=== PATIENT | female | born 1995 | race Caucasian/White ===

== ENCOUNTER 2020-03-23 18:13 | Emergency (ER) | payer MEDICAID ==
[~2020-03-23] VITALS: Ht 172.7 cm; Wt 116.1 kg
[2020-03-23 18:28] VITALS: Ht 172.7 cm; Wt 116.1 kg
[2020-03-23 19:52] LABS: BASOPHIL % 0.6 % (0-2); PLATELET COUNT 257 x10^3mcL (130-400); RED CELL DISTRIBUTION WIDTH 13.4 % (11.5-14.5)
[2020-03-23 19:59] LABS: CALCIUM 8.4 mg/dL (8.5-10.1); CARBON DIOXIDE 27.2 mmol/L (21-32); CHLORIDE SERUM 105 mmol/L (98-107); GFR1 > 60 mL/min; GLUCOSE SERUM 92 mg/dL (74-106); POTASSIUM SERUM 3.8 mmol/L (3.5-5.1); SODIUM SERUM 141 mmol/L (136-145)
[2020-03-23 20:03] LABS: ALBUMIN 3.5 g/dL (3.4-5.0); ALKALINE PHOSPHATASE 71 U/L (46-116); ALT/SGPT 25 U/L (14-59); AST/SGOT 14 U/L (15-37); BILIRUBIN TOTAL 0.2 mg/dL (0.20-1.00); LIPASE 78 IU/L (73-393); TOTAL PROTEIN, SERUM 7.2 g/dL (6.4-8.2)
[2020-03-23 20:28] LABS: microscopic required? NO
[2020-03-23 20:35] LABS: UA SPECIFIC GRAVITY >=1.030 (1.005-1.035); urine erythrocyte NEGATIVE (NEGATIVE)
[2020-03-23 20:49] LABS: AMPHETAMINE QUAL UR NONE DETECTED (See below)
[2020-03-23 22:48] VITALS: BP 132/73
== END 2020-03-23 22:48 | disposition home or self-care (01) ==
LOC: ED 18:13
PROVIDERS: Emergency Medicine
DX: F12.188 Cannabis abuse with other cannabis-induced disorder (principal); E66.9 Obesity, unspecified; Z68.38 Body mass index [BMI] 38.0-38.9, adult
CPT/HCPCS: J7030

== ENCOUNTER 2020-07-16 13:35 | Emergency (ER) | payer MEDICAID ==
[~2020-07-16] VITALS: Ht 175.3 cm; Wt 127.9 kg
[2020-07-16 13:47] VITALS: Ht 175.3 cm; Wt 127.9 kg
[2020-07-16 15:48] LABS: BASOPHIL % 0.5 % (0-2); PLATELET COUNT 275 x10^3mcL (130-400); RED CELL DISTRIBUTION WIDTH 13.8 % (11.5-14.5)
[2020-07-16 15:56] LABS: UA SPECIFIC GRAVITY 1.025 (1.005-1.035); microscopic required? YES; urine erythrocyte 3+ (NEGATIVE)
[2020-07-16 17:07] VITALS: BP 144/76
== END 2020-07-16 17:07 | disposition home or self-care (01) ==
LOC: ED 13:35
PROVIDERS: Emergency Medicine
DX: O20.0 Threatened abortion (principal)

== ENCOUNTER 2020-07-17 22:18 | Emergency (ER) | payer MEDICAID ==
[~2020-07-17] VITALS: Ht 175.3 cm; Wt 128.4 kg
[2020-07-17 22:24] VITALS: Ht 175.3 cm; Wt 128.4 kg
[2020-07-17 23:47] LABS: BASOPHIL % 0.4 % (0-2); PLATELET COUNT 286 x10^3mcL (130-400); RED CELL DISTRIBUTION WIDTH 13.2 % (11.5-14.5)
[2020-07-18 00:29] LABS: UA SPECIFIC GRAVITY >=1.030 (1.005-1.035); microscopic required? YES; urine erythrocyte 3+ (NEGATIVE)
[2020-07-18 01:05] VITALS: BP 134/74
== END 2020-07-18 01:06 | disposition home or self-care (01) ==
LOC: ED 22:18
PROVIDERS: Specialist
DX: O03.9 Complete or unspecified spontaneous abortion without complication (principal); O99.211 Obesity complicating pregnancy, first trimester; Z3A.01 Less than 8 weeks gestation of pregnancy